=== PATIENT | male | born 1990 | race Caucasian/White ===

== ENCOUNTER 2017-10-17 21:47 | Emergency (ER) | payer OTHER ==
[~2017-10-17] VITALS: Ht 175.3 cm; Wt 65.8 kg
[2017-10-17 21:55] VITALS: BP 140/90
--- NOTE | 2017-10-17 22:56 | ED HAND/WRIST INJURY COMPLAINT ---
History of Present Illness General Chief Complaint: Laceration Procedure Stated Complaint: "CUT RT THUMB" Source: patient Exam Limitations: no limitations Vital Signs & Intake/Output Vital Signs & Intake/Output Vital Signs Date Time Temp Pulse Resp B/P B/P Pulse O2 O2 Flow FiO2 Mean Ox Delivery Rate 10/17 2154 96.8 118 18 140/90 97 Room Air Room Air Allergies Coded Allergies: No Known Allergies (10/17/17) Triage Note: TRIAGE: 27 Y/O MALE PRESENTS C/O LAC TO RIGHT THUMB S/P WASHING GLASS DISHES. REPORTS "I THINK I'M UP TO DATE WITH MY TETANUS VACCINE. I WORK IN CONSTRUCTION." POSSIBLE AVULSION NOTED. ACTIVE BLEEDING AT PRESENT. GAUZE PROVIDED. Triage Nurses Notes Reviewed? yes Occurred: just prior to arrival Duration: hour(s): (1), constant, continues in ED Timing: single episode today Injury Environment: home Severity: mild, moderate Severity Numbers: 5 Pain/Injury Location: Right: 1st finger. Context: laceration Method of Injury: laceration No Modifying Factors: none HPI: 27-year-old male with no past medical history positive for evaluation of a laceration to his right thumb. Patient states he was washing dishes when the dishes broke causing a laceration to the base of the thumb. This happened about 1 hour ago he clean the area and came in. He denies any numbness or tingling he is unsure of his last tetanus shot. No other injuries. He is not taking any medicine for pain. He states that the plate broke into large pieces it did not shatter. (Ludwig Schneider) Past History Travel History Traveled to [place] past 21 day No Medical History Any Pertinent Medical History? see below for history Neurological: NONE EENT: NONE Cardiovascular: NONE Respiratory: NONE Gastrointestinal: NONE Hepatic: NONE Renal: NONE Musculoskeletal: NONE Psychiatric: NONE Endocrine: BORDERLINE DIABETIC Surgical History Surgical History: unobtainable Psychosocial History What is your primary language [place] Tobacco Use: Current Daily Use Daily Tobacco Use Amount/Type: => 5 Cigarettes daily ETOH Use: occasional use Illicit Drug Use: marijuana Family History Hx Contributory? No (Ludwig Schneider) Review of Systems Review of Systems Constitutional: Reports: no symptoms. EENTM: Reports: no symptoms. Respiratory: Reports: no symptoms. Cardiovascular: Reports: no symptoms. GI: Reports: no symptoms. Genitourinary: Reports: no symptoms. Musculoskeletal: Reports: no symptoms. Skin: Reports: see HPI (laceration). Neurological/Psychological: Reports: no symptoms. Hematologic/Endocrine: Reports: no symptoms. Immunologic/Allergic: Reports: no symptoms. All Other Systems: Reviewed and Negative (Ludwig Schneider) Physical Exam Physical Exam General Appearance: well developed/nourished, no apparent distress, alert, awake Head: atraumatic, normal appearance Eyes: Bilateral: normal appearance, EOMI. Ears, Nose, Throat: hearing grossly normal Neck: normal inspection, supple, full range of motion Cardiovascular/Respiratory: no respiratory distress Elbow Left: normal range of motion, normal inspection Elbow Right: normal range of motion, normal inspection Forearm Left: normal range of motion, normal inspection Forearm Right: normal range of motion, normal inspection Wrist Left: normal range of motion, normal inspection Wrist Right: normal range of motion, normal inspection Hand Left: normal inspection, normal range of motion Hand Right: normal range of motion, lacerations, 1st finger, there is a 2 cm linear v shapelaceration located at the base of the thumb on the palmar aspect of the hand. Small amount of active bleeding subcutaneous tissue is visible. No palpable or observable foreign body the wound was explored extensively. Full range of motion of the thumb is intact neurovascular supply intact Neurologic/Tendon: normal sensation, normal motor functions, normal tendon functions, responds to pain, no evidence tendon injury, no pulse deficit Skin: intact, normal color, warm/dry (Ludwig Schneider) Progress Differential Diagnosis: contusion, dislocation, fracture, septic arthritis, sprain, tenosynovitis, laceration, foreign body Plan of Care: Current Medications Sig/Low Start time Last Medication Dose Stop Time Status Admin Lidocaine 20 ML ONCE ONE 10/17 2229 UNVr (Lidocaine 1%) 10/17 2230 The area was flushed with copious amounts of sterile water. The wound was explored for foreign body and none was detected. Betadine applied 1% lidocaine without epi was used for local pain control. 5 5-0 nylon simple sutures were used to approximate the wound. Sterile dressing applied. Discussed wound care procedures. Discussed risks of retained foreign body. Discussed return precautions in detail remove stitches in 7-10 days return sooner with any concerns Tylenol or Profen for pain and tetanus updated. Patient agrees the plan (Ludwig Schneider) Departure Departure Disposition: HOME OR SELF CARE Condition: Stable Clinical Impression Primary Impression: Laceration of thumb Qualifiers: Encounter type: initial encounter Damage to nail status: without damage Foreign body presence: without foreign body Laterality: right Qualified Code: S61.011A - Laceration without foreign body of right thumb without damage to nail, initial encounter Referrals: Unknown (PCP/Family) Additional Instructions: Keep the area clean and dry. Change dressing once daily next 3-4 days after this leave the area open to air dry. Wolverine for signs of infection like redness swelling discharge or pain. The stitches need to come out in 7-10 days. Return sooner with any concerns. Please go over all results of today's visit with your primary care doctor. Contact your primary care doctor to let them know you were here in the emergency room. There may be nonspecific findings which may not be related to your visit today here in the emergency room but may require further evaluation and chronic monitoring by your primary care doctor. If you had a laceration today the chance of foreign body always remains. You should follow-up with your primary care doctor for recheck in 3-5 days for a wound check. If you had an x-ray done there is a chance that a fracture could have been missed on initial read and you should follow-up with your primary care doctor for repeat x-rays if symptoms persist. If your blood pressure was elevated here in the emergency room please have rechecked by her primary care doctor within the next 48 hours by your primary care doctor. If you were prescribed a narcotic here in the emergency room or any type of controlled substances you're not allowed to drive while taking this medication or operate any type of heavy machinery. Narcotics can make you feel lightheaded dizziness nausea and can cause constipation. You may need to apple picker a stool softener. Thank you for choosing [facility] emergency room. Please return to the emergency room immediately if you have any other concerns worsening of symptoms. Departure Forms: Customer Survey General Discharge Information (Ludwig Schneider) PA/INDUSTRIAL ECOLOGY TECHNICIAN Co-Sign Statement Statement: ED Attending supervision documentation- [] I saw and evaluated the patient. I have also reviewed all the pertinent lab results and diagnostic results. I agree with the findings and the plan of care as documented in the PA's/INDUSTRIAL ECOLOGY TECHNICIAN's documentation. [x] I have reviewed the ED Record and agree with the PA's/INDUSTRIAL ECOLOGY TECHNICIAN's documentation. [] Additions or exceptions (if any) to the PAs/INDUSTRIAL ECOLOGY TECHNICIAN's note and plan are summarized below: [] (Vince PORRAS,Drew Cabral) Procedures Incision and Drainage Site: right thumb Laceration/Wound Repair Laceration/Wound Repair: Wound Location: upper extremity Wound's Depth, Shape: flap, irregular, subcutaneous Wound Length (cm): 2 Wound Explored: clean, no foreign body removed, irrigated extensively Irrigated w/ Saline (ccs): 400 Betadine Prep? Yes Anesthesia: 1% lidocaine Volume Anesthetic (ccs): 5 Wound Debrided: minimal Wound Repaired With: sutures Suture Size/Type: 5:0, nylon Number of Sutures: 5 Sterile Dressing Applied: Yes Splint Applied? No Tetanus Status: up to date (today) (Ethan RIZVI,Ludwig)
== END 2017-10-17 23:38 ==
LOC: ERH 21:47
DX: S61.011A Laceration without foreign body of right thumb without damage to nail, initial encounter (principal); W45.8XXA Other foreign body or object entering through skin, initial encounter; Y93.G1 Activity, food preparation and clean up; Y92.009 Unspecified place in unspecified non-institutional (private) residence as the place of occurrence of the external cause
CPT/HCPCS: 90471; 90714